=== PATIENT | male | born 1950 | race Hispanic/Latino ===

== ENCOUNTER 2018-01-23 10:24 | Observation (INO) | payer MEDICARE ==
--- NOTE | 2018-01-22 11:09 | Diagnostic Imaging Report ---
PROCEDURE: X-RAY CHEST, TWO VIEWS COMPARISON: None. INDICATIONS: PRE OPERATIVE CHEST X-RAY FOR UROLOGY SURGERY FINDINGS: The lungs are well-inflated. No focal airspace consolidation, pleural effusion, or pneumothorax. Hazy opacity along the right and left heart borders likely reflect prominent epicardial fat. Convexity of the azygos esophageal line likely related to multilevel degenerative disc changes and large marginal osteophytes. Tortuosity and atherosclerotic calcification of the thoracic aorta. No acute osseous abnormality. Healed fracture deformity of the midshaft of the left clavicle. CONCLUSION: No acute cardiopulmonary abnormality. Dictated by: Mega Bradley M.D. on 01/22/2018 at 11:11 Electronically approved by: Mega Bradley M.D. on 01/22/2018 at 11:11
[2018-01-22 11:16] LABS: BASOPHILS # (AUTO) 0.1 (0.0-0.1); BASOPHILS % 0.5 % (0.0-1.0); EOSINOPHILS # (AUTO) 0.5 (0.0-0.4); HEMATOCRIT 40.9 % (38.2-49.6); LYMPHOCYTES # (AUTO) 2.4 (1.0-3.2); LYMPHOCYTES % 24.6 % (18.0-39.1); MEAN CORPUSCULAR HEMOGLOBIN 31.3 pg (28-32); MEAN CORPUSCULAR HGB CONC 31.8 g/dL (31-35); MEAN CORPUSCULAR VOLUME 98.3 fL (81-99); MONOCYTES # (AUTO) 1.6 (0.2-0.8); MONOCYTES % 16.2 % (4.4-11.3); NEUTROPHILS # (AUTO) 5.2 (2.1-6.9); NEUTROPHILS % 53.1 % (38.7-80.0); PLATELET COUNT 172 x10e3/uL (140-360); RED BLOOD COUNT 4.16 x10e6/uL (4.3-5.7); RED CELL DISTRIBUTION WIDTH 15.2 % (11.7-14.4)
[2018-01-22 11:26] LABS: INR 1.01; PROTHROMBIN TIME 12.5 seconds (11.9-14.5)
[2018-01-22 11:27] LABS: PARTIAL THROMBOPLASTIN TIME 25.5 seconds (23.8-35.5)
[2018-01-22 11:35] LABS: ALANINE AMINOTRANSFERASE 18 IU/L (0-55); ALBUMIN 3.3 g/dL (3.5-5.0); ALKALINE PHOSPHATASE 76 IU/L (40-150); ANION GAP 11.1 mmol/L (8-16); BLOOD UREA NITROGEN 20 mg/dL (7-26); BUN/CREATININE RATIO 22 (6-25); CALCIUM 9.2 mg/dL (8.4-10.2); CARBON DIOXIDE 27 mmol/L (22-29); CHLORIDE 109 mmol/L (98-107); EST GLOMERULAR FILTRATION RATE > 60 ML/MIN (60-); GLUCOSE 91 mg/dL (74-118); POTASSIUM 4.1 mmol/L (3.5-5.1); SODIUM 143 mmol/L (136-145)
[2018-01-22 12:46] LABS: EOSINOPHILS % (MANUAL) 3 % (0-7); LYMPHOCYTES % (MANUAL) 20 % (19-48); MONOCYTES % (MANUAL) 18 % (3.4-9.0); NEUTROPHILS % (MANUAL) 52 % (40-74)
[2018-01-22 12:47] LABS: ANISOCYTOSIS SLIGHT; PLATELET ESTIMATE ADEQUATE; PLATELET MORPHOLOGY COMMENT FEW LARGE; RBC MORPHOLOGY COMMENT NORMAL
[~2018-01-23] VITALS: Ht 167.6 cm; Wt 98.2 kg
[~2018-01-23 10:24] MED LIST: NAFTIN45 GM TOP
--- OUTSIDE RECORDS SUMMARY | 2018-01-23 10:26 | XMS REPORT ---
[facility] Address Unknown Phone Unavailable Care Team Providers Care [employer] President Name Role Phone CATRINA SWIFT Unavailable Unavailable Problems This patient has no known problems. Allergies, Adverse Reactions, Alerts This patient has no known allergies or adverse reactions. Medications This patient has no known medications. Results Test Description Test Time Test Comments Text Results Atomic Results Result Comments CHEST 2 VIEWS [place] [address] Patient Name: SANTHOSH GLEASON MR #: [id number] : 1950 Age/Sex: 67/M Req #: [id number] Adm Physician: Ordered by: CATRINA SWIFT MD Report #: [id number] Location: OR Room/Bed: Procedure: [id number] DX/CHEST 2 VIEWS Exam Date: 01/22/18 Exam Time: 1030 REPORT STATUS: Signed PROCEDURE: X-RAY CHEST, TWO VIEWS COMPARISON: None. INDICATIONS: PRE OPERATIVE CHEST X-RAY FOR UROLOGY SURGERY FINDINGS: The lungs are well-inflated. No focal airspace consolidation, pleural effusion, or pneumothorax. Hazy opacity along the right and left heart borders likely reflect prominent epicardial fat. Convexity of the azygos esophageal line likely related to multilevel degenerative disc changes and large marginal osteophytes. Tortuosity and atherosclerotic calcification of the thoracic aorta. No acute osseous abnormality. Healed fracture deformity of the midshaft of the left clavicle. CONCLUSION: No acute cardiopulmonary abnormality. Dictated by: Diane Dominique M.D. on 01/22/2018 at 11:11 Electronically approved by: Diane Dominique M.D. on 01/22/2018 at 11:11 Dictated By : DIANE DOMINIQUE MD 1111 Transcribed By: NATALEE on 01/22/18 1111 COPY TO: CATRINA SWIFT MD
[2018-01-23] MEDS ORDERED: CEFOXITIN SOD 1 GM VIAL ONE (10:53)
--- NOTE | 2018-01-23 13:23 | Operative Report ---
DATE OF PROCEDURE: January 23, 2018 PREOPERATIVE DIAGNOSIS: Elevated prostate-specific antigen of prostate and nodular prostate. POSTOPERATIVE DIAGNOSIS: Elevated prostate-specific antigen and nodular prostate. OPERATION PERFORMED: Ultrasound-directed transrectal prostate biopsy. ANESTHESIA: IV sedation monitored anesthesia care. INDICATIONS: This patient is a 67-year-old male with a long history of chronic prostatitis. He states he saw a physician in [place] for routine exam and was told there was something wrong with the blood test on his prostate, and he was subsequently treated with antibiotics. The patient states he has had previous prostate-specific antigens done that were always normal. He has a family history of prostate cancer that includes his father. When I examined him, the patient had a PSA of 14.12 and had a prostate nodule and his urine did not appear infected at that time. I obtained a PSA on him which came back 14.12. For further details, please refer to the history and physical. The procedure was done in the following fashion: DESCRIPTION OF PROCEDURE: The patient was taken to the operating room and placed under IV sedation monitored anesthesia care. He was then placed in the lateral decubitus position with the right side up. An ultrasound scan of the prostate was performed which suggested about a 20-gram prostate. The seminal vesicles appeared normal. There were numerous internal calcifications. Sextant biopsies of the prostate were performed using the Netcipia spring-loaded biopsy gun and the ultrasound probe. Specimens were taken from the right base lateral, right base medial, right mid lateral, then right mid medial, then right base lateral, then right base medial, then left base lateral, then left base medial, then left mid lateral, then left mid medial, then left apex lateral, then left apex medial. After the 12 specimens were obtained, the prostate gun was removed and the ultrasound probe removed. The patient was returned to a supine position, and an 18-Amharic Dinero catheter was inserted. The patient tolerated the procedure well and left the operating room in good condition. My plan at this time is to monitor the patient overnight with a catheter to gravity drainage. Remove the catheter in the morning for a trial of voiding. Job#: [id number]
[2018-01-23 13:30] VITALS: BP 134/72
[2018-01-23] MEDS: SODIUM CHLORIDE 0.9% 1000ML 1,000 ML IV SCH ×2 (14:36→21:59)
[2018-01-23 14:41] VITALS: BP 134/72
[2018-01-23 14:50] VITALS: BP 134/72
[2018-01-23] MEDS ORDERED: MIDAZOLAM HCL 2 MG/2 ML VIAL ONE (15:06)
[2018-01-23] MEDS ORDERED: FENTANYL CITRATE/PF 100MCG/2 ML INJ ONE (15:06)
[2018-01-23] MEDS ORDERED: PROPOFOL IV EMULSION 10 MG/ML 20 ML VIAL ONE (15:18)
[2018-01-23] MEDS ORDERED: LIDOCAINE HCL 2% LOCAL INJ 5 ML SDV VIAL INJ ONE (15:18)
[2018-01-23] MEDS: DOCUSATE SODIUM 100 MG CAP PO SCH (17:00)
[2018-01-23 17:05] VITALS: BP 120/73
[2018-01-23] MEDS ORDERED: CEFOXITIN 1GM/ DEXTROSE 50ML 50 ML IV SCH (18:00)
[2018-01-23] MEDS: CEFOXITIN SOD 1 GM VIAL IV SCH ×2 (18:28→23:24)
[2018-01-23 20:00] VITALS: BP 116/73
[2018-01-24] VITALS (7 sets, daily range): BP systolic 115–142; BP diastolic 60–78
[2018-01-24] MEDS: HYDROCODONE/APAP 7.5MG-325MG 1 EA TAB PO PRN ×3 (03:18→18:00)
[2018-01-24] MEDS: CEFOXITIN SOD 1 GM VIAL IV SCH ×4 (05:07→23:45)
[2018-01-24] MEDS ORDERED: MORPHINE SULFATE 2 MG/ML SYR IV PRN (07:00)
[2018-01-24] MEDS ORDERED: ONDANSETRON HCL 4 MG ORAL DISINTEGRATING TAB PO PRN (07:00)
[2018-01-24] MEDS: SODIUM CHLORIDE 0.9% 1000ML 1,000 ML IV SCH ×3 (09:07→23:45)
[2018-01-24] MEDS: DOCUSATE SODIUM 100 MG CAP PO SCH ×2 (09:20→17:00)
[2018-01-24] MEDS ORDERED: METHYLPREDNISOLONE SOD SUCC 40 MG/ML VIAL IV ONE (11:00)
[2018-01-24] MEDS: METHYLPREDNISOLONE SOD SUCC 40 MG/ML VIAL IV SCH (11:17)
[2018-01-24] MEDS: ALLOPURINOL 100 MG TAB PO SCH (11:17)
--- NOTE | 2018-01-24 13:03 | Progress Note ---
DATE: January 24, 2018 The patient is now 1 day status post ultrasound-directed transrectal prostate biopsy. The Dinero catheter was removed this morning for a trial of voiding. The patient states he voided without difficulty, and the urine is yellow colored. However, the patient has developed pain and swelling in the right knee and it is very tender. The patient now relates that he has a past history of gout and he is taking indomethacin on and off for several years for gout flare ups. He thinks this may be another gout attack. PHYSICAL EXAMINATION GENERAL: Reveals that the patient is alert and oriented to person, place and time. LUNGS: Clear. HEART: Heart rate is regular. ABDOMEN: Soft. EXTREMITIES: The left leg appears normal except for varicose veins. The right leg has varicose veins. There is extreme swelling and tenderness in the right knee. There is no evidence of tophus at this time. However, with the varicose veins he does have a little bit of swelling in the right lower extremity. In order to make sure that this is not a deep venous thrombophlebitis postoperatively, I am getting a Doppler study on the right leg in order to make sure that he is not having a deep venous thrombophlebitis. I discussed this with Dr. Alexy Daniel over the telephone. If it turns out that the patient is just having a gout attack, Dr. Daniel can send him home on the appropriate medications and antibiotics when he comes in to see the patient. However, if the patient does in fact have a deep venous thrombophlebitis, he will need to be admitted and started on appropriate anticoagulation therapy. Job#: [id number] SUSAN
[2018-01-24] MEDS: COLCHICINE 0.6 MG TAB PO SCH ×2 (15:08→17:00)
[2018-01-24 15:16] LABS: CHOL/HDL RATIO 2.6 (3.9-4.7)
[2018-01-24] MEDS: ENOXAPARIN SOD INJ 40 MG/0.4 ML SYR SC SCH (17:00)
[2018-01-24] MEDS ORDERED: COLCHICINE 0.6 MG TAB PO SCH (17:00)
--- NOTE | 2018-01-24 18:37 | Consultation ---
DATE OF CONSULTATION: MEDICAL CONSULTATION ATTENDING PHYSICIAN: Dr. Park REASON FOR CONSULTATION: Medical management. CHIEF COMPLAINT: Elevated PSA. HISTORY OF PRESENT ILLNESS: This is a 67-year-old man with a history of cigarette use, quitting 30 years ago. He was being treated with Rapaflo for prostate-related problems. He has had chronic prostatitis. Now found to have elevated PSA of 14.12. He came in electively for prostate biopsy. This was uneventful. The patient now developed right knee pain. He does have a history of gout. The pain is severe, about 10 out of 10, with use of the leg. He is admitted for further evaluation and management. PAST MEDICAL HISTORY: Gout; chronic prostatitis; cigarette abuse, quitting 30 years ago; elevated PSA at 14.12; osteoarthritis; varicose veins of the lower extremities. ALLERGIES: PER ELECTRONIC MEDICAL RECORD. FAMILY HISTORY: Mother had liver cancer. Father had lung cancer, and father had prostate cancer. SOCIAL HISTORY: The patient is . He quit cigarettes in 1977. He previously smoked 1 pack per day. No alcohol or illicits. 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 MEDICATIONS: Per electronic medical record. REVIEW OF SYSTEMS: Denies any dizziness, chest pain or shortness of breath. VITAL SIGNS: Have been reviewed. PHYSICAL EXAMINATION GENERAL: A tired-appearing man resting in bed. HEENT: Anicteric. Pupils are responsive to light. No oral lesions. CARDIOVASCULAR: Normal S1 and S2. LUNGS: Moderate breath sounds. ABDOMEN: Soft, nontender, nondistended. : No Dinero in place. EXTREMITIES: He has right knee with exquisite tenderness on palpation. No edema. SKIN: Dry. PSYCHIATRIC: Normal affect. NEUROLOGIC: Alert and oriented times 3, moving all extremities. SKIN: Dry. PSYCHIATRIC: Normal affect. LABS: Reviewed. MEDICATIONS: Reviewed. ASSESSMENT AND PLAN: This is a 67-year-old man. 1. Elevated prostate-specific antigen. He is status post prostate biopsy. Will follow up results. 2. Right knee gout flare. His uric acid level is 7.3. Will continue with IV steroids and allopurinol and also add colchicine. If he can tolerate ambulation tomorrow, he possibly could go home tomorrow with medication and a crutch for walking. 3. Osteoarthritis. P.R.N. pain medication. 4. Physical deconditioning, probably due to gout flare. Will consult physical therapy. He may need a walker. 5. Obesity. BMI is 34. 9. Screen for diabetes and obtain lipid panel. 6. Normocytic anemia, mild. Will follow. 7. Prophylaxis: Use DVT prophylaxis. 8. Disposition: Ultrasound of the right leg is negative for any DVT. Will add Lovenox and Pepcid. RENETTA MAURICIO MD Job#: [id number]
[2018-01-25] VITALS (7 sets, daily range): BP systolic 123–154; BP diastolic 69–74
[2018-01-25] MEDS: CEFOXITIN SOD 1 GM VIAL IV SCH ×3 (05:05→17:30)
[2018-01-25] MEDS: HYDROCODONE/APAP 7.5MG-325MG 1 EA TAB PO PRN (07:10)
[2018-01-25] MEDS: COLCHICINE 0.6 MG TAB PO SCH ×2 (08:57→17:30)
[2018-01-25] MEDS: METHYLPREDNISOLONE SOD SUCC 40 MG/ML VIAL IV SCH (08:57)
[2018-01-25] MEDS: DOCUSATE SODIUM 100 MG CAP PO SCH ×2 (08:57→17:30)
[2018-01-25] MEDS: ALLOPURINOL 100 MG TAB PO SCH (09:00)
[2018-01-25] MEDS ORDERED: PREDNISONE20 MG PO (09:16)
[2018-01-25] MEDS ORDERED: ALLOPURINOL100 MG PO (09:16)
[2018-01-25] MEDS ORDERED: Colchicine PO (09:16)
[2018-01-25] MEDS ORDERED: ULTRAM 50MG50 MG PO (09:22)
[2018-01-25] MEDS ORDERED: KEFLEX500 MG PO (09:22)
[2018-01-25] MEDS ORDERED: COLACE100 M1 PO (09:22)
[2018-01-25] MEDS: SODIUM CHLORIDE 0.9% 1000ML 1,000 ML IV SCH (14:56)
[2018-01-25] MEDS: ENOXAPARIN SOD INJ 40 MG/0.4 ML SYR SC SCH (17:30)
--- NOTE | 2018-03-02 13:30 | Discharge Summary ---
FINAL DISCHARGE DIAGNOSIS: Elevate prostate specific antigen. OPERATIONS PERFORMED: Ultrasound-directed transrectal prostate biopsy. CONSULTING PHYSICIAN: Dr. Alexy Daniel. HISTORY OF PRESENT ILLNESS: This patient is a 67-year-old male with a long history of chronic prostatitis. He was found to have a prostate specific antigen of 14.12 and a prostate nodule on physical examination. HOSPITAL COURSE: The patient came into the hospital as an outpatient day surgery on January 23, 2018 and had ultrasound-directed transrectal prostate biopsy. The patient tolerated the procedure well and left the operating room in good condition but the next day he was complaining about leg pains and it look like he may have been having an exacerbation of gout. A Doppler ultrasound study was obtained. The Doppler ultrasound study confirmed that he did not have a deep venous thrombophlebitis and our concern then was that he be treated for gout following his ultrasound-directed transrectal prostate biopsy. The patient was subsequently discharged after it was confirmed he did not have a deep venous thrombophlebitis and he left the hospital in good condition just having the gout attack on appropriate medication. It should be noted the patient subsequently responded to the medication that Dr. Alexy Daniel prescribed for him regarding the gout and the prostate biopsy came back showing prostate cancer. CATRINA SWIFT MD Job#: [id number] DG
== END 2018-01-25 20:40 | disposition home or self-care (01) ==
LOC: OR 10:24 → IMCU 13:14
PROVIDERS: ADMIT Urology; ATTEND Urology
DX: C61 Malignant neoplasm of prostate (principal); N41.1 Chronic prostatitis; M10.061 Idiopathic gout, right knee; D64.9 Anemia, unspecified; E66.9 Obesity, unspecified; Z68.34 Body mass index [BMI] 34.0-34.9, adult; M19.90 Unspecified osteoarthritis, unspecified site; I83.93 Asymptomatic varicose veins of bilateral lower extremities; K64.4 Residual hemorrhoidal skin tags; R21 Rash and other nonspecific skin eruption; Z01.810 Encounter for preprocedural cardiovascular examination; Z01.812 Encounter for preprocedural laboratory examination; Z01.818 Encounter for other preprocedural examination; Z80.42 Family history of malignant neoplasm of prostate; Z87.891 Personal history of nicotine dependence; Z80.1 Family history of malignant neoplasm of trachea, bronchus and lung; Z80.8 Family history of malignant neoplasm of other organs or systems
CPT/HCPCS: 36415 ×2; 55700; 71046; 76872; 76942; 80053; 80061; 83036; 84550; 85025; 85610; 85730; 88305; 93005; 93971; 97116; 97139; 97163; 97530; G0378 ×3; G8978; G8979; J0694 ×3; J1650 ×2; J2001; J2250; J2270; J2920 ×2; J7030 ×3

== ENCOUNTER 2022-11-07 07:12 | Observation (INO) | payer MEDICARE ==
[2022-11-06 08:48] LABS: BASOPHILS % 0.3 % (0.0-1.0); EOSINOPHILS # (AUTO) 0.4 (0.0-0.4); EOSINOPHILS % 3.7 % (0.0-6.0); HEMATOCRIT 42.3 % (38.2-49.6); HEMOGLOBIN 13.7 g/dL (14.0-18.0); LYMPHOCYTES # (AUTO) 2.6 (1.0-3.2); LYMPHOCYTES % 27.9 % (18.0-39.1); MEAN CORPUSCULAR HEMOGLOBIN 31.4 pg (28-32); MEAN CORPUSCULAR HGB CONC 32.4 g/dL (31-35); MEAN CORPUSCULAR VOLUME 96.8 fL (81-99); MONOCYTES # (AUTO) 2.1 (0.2-0.8); MONOCYTES % 21.9 % (4.4-11.3); NEUTROPHILS # (AUTO) 4.3 (2.1-6.9); NEUTROPHILS % 45.5 % (38.7-80.0); PLATELET COUNT 245 x10e3/uL (140-360); RED BLOOD COUNT 4.37 x10e6/uL (4.3-5.7)
[2022-11-06 09:06] LABS: ANION GAP 13.7 mmol/L (8-16); BLOOD UREA NITROGEN 13 mg/dL (7-26); BUN/CREATININE RATIO 13 (6-25); CARBON DIOXIDE 22 mmol/L (22-29); CHLORIDE 108 mmol/L (98-107); CREATININE, SERUM 0.99 mg/dL (0.72-1.25); GLUCOSE 92 mg/dL (74-118); POTASSIUM 3.7 mmol/L (3.5-5.1); SODIUM 140 mmol/L (136-145)
[2022-11-06 09:15] LABS: INR 0.96; PARTIAL THROMBOPLASTIN TIME 29.6 seconds (23.8-35.5)
[2022-11-06 10:54] LABS: EOSINOPHILS % (MANUAL) 2 % (0-7); LYMPHOCYTES % (MANUAL) 23 % (19-48); MONOCYTES % (MANUAL) 17 % (3.4-9.0); MYELOCYTES % (MANUAL) 1 % (0-0); NEUTROPHILS % (MANUAL) 50 % (40-74)
[2022-11-06 10:55] LABS: PLATELET ESTIMATE ADEQUATE; PLATELET MORPHOLOGY COMMENT NORMAL; RBC MORPHOLOGY COMMENT NORMAL
[~2022-11-07] VITALS: Ht 167.6 cm; Wt 102.1 kg
[~2022-11-07 07:12] MED LIST changes: +ALLOPURINOL100 MG PO; +COLACE100 M1 PO; +Colchicine PO; +KEFLEX500 MG PO; +LIDOCAINE 1% W/EPINEPHRINE 20 ML VIAL ONE; +PREDNISONE20 MG PO; +THROMBIN FOR SOLN 5,000 UNIT VIAL ONE; +TYLENOL EXTRA500 MG PO; +ULTRAM 50MG50 MG PO; +Vancomycin IV 1 GM VIAL ONE
[2022-11-07] MEDS ORDERED: SUGAMMADEX SODIUM 200 MG/2 ML VIAL IV ONE (07:23)
[2022-11-07] MEDS ORDERED: CEFAZOLIN SODIUM 2 GM ONE (07:56)
[2022-11-07] MEDS ORDERED: PROPOFOL IV EMULSION 10 MG/ML 20 ML VIAL ONE (10:35)
[2022-11-07] MEDS ORDERED: SEVOFLURANE INHAL SOLN 250 ML PEN BTL ONE (10:35)
[2022-11-07] MEDS ORDERED: LIDOCAINE HCL 2% LOCAL INJ 5 ML SDV VIAL INJ ONE (10:35)
[2022-11-07] MEDS ORDERED: ONDANSETRON HCL INJ 2MG/ML 2ML 2 MG/ML VIAL ONE (10:35)
[2022-11-07] MEDS ORDERED: DEXAMETHASONE SOD PHOS INJ 4 MG/ML SDV ONE (10:35)
[2022-11-07] MEDS ORDERED: POVIDONE IODINE 0.05% 0.05 % ML PO ONE (10:35)
[2022-11-07] MEDS ORDERED: EPHEDRINE SULFATE INJ 50 MG/ML VIAL ONE (10:35)
[2022-11-07] MEDS ORDERED: MAGNESIUM/ALUMINUM/SIMETHICONE 30 ML UDC PO PRN (10:45)
[2022-11-07] MEDS ORDERED: ACETAMINOPHEN 325 MG TAB PO PRN (10:45)
[2022-11-07] MEDS ORDERED: PROMETHAZINE HCL (IM) 25 MG/ML VIAL IM PRN (10:45)
[2022-11-07] MEDS ORDERED: MORPHINE SULFATE 5 MG/ML VIAL IM PRN (10:45)
[2022-11-07] MEDS ORDERED: HYDROMORPHONE 2MG/ML 2 MG/ML ML IV PRN (10:45)
[2022-11-07] MEDS ORDERED: ONDANSETRON HCL INJ 2MG/ML 2ML 2 MG/ML VIAL IV PRN (10:45)
[2022-11-07] MEDS ORDERED: CARISOPRODOL 350 MG TAB PO PRN (10:45)
[2022-11-07] MEDS ORDERED: ZOLPIDEM TARTRATE 5 MG TAB PO PRN (10:45)
[2022-11-07] MEDS ORDERED: OXYCODONE/ACETAMINOPHEN 5-325 1 EACH TABLET PO PRN (10:45)
[2022-11-07] MEDS ORDERED: HYDROCODON-ACE1 EA12 PO (10:46)
[2022-11-07] MEDS ORDERED: FENTANYL CITRATE/PF 100MCG/2 ML INJ ONE ×2 (12:18→13:19)
[2022-11-07 14:30] VITALS: BP 134/88
[2022-11-07] MEDS: LACTATED RINGER'S 1,000 ML IV SCH ×3 (15:14→23:31)
[2022-11-07 15:32] VITALS: BP 134/80
[2022-11-07 15:45] VITALS: BP 134/80
[2022-11-07 16:12] VITALS: BP 134/81
[2022-11-07 20:00] VITALS: BP 140/74
[2022-11-08 00:35] VITALS: BP 145/81
[2022-11-08 04:25] VITALS: BP 139/85
[2022-11-08 05:14] VITALS: BP 145/81
[2022-11-08 08:00] VITALS: BP 134/75
[2022-11-08] MEDS ORDERED: ONDANSETRON HCL 4 MG ORAL DISINTEGRATING TAB PO PRN (08:15)
== END 2022-11-08 08:39 | disposition home or self-care (01) ==
LOC: OR 07:12 → PACU V 10:44 → MED/SURG2 14:11
PROVIDERS: ADMIT Neurological Surgery; ATTEND Neurological Surgery
DX: M50.021 Cervical disc disorder at C4-C5 level with myelopathy (principal); M06.9 Rheumatoid arthritis, unspecified; Z71.82 Exercise counseling; Z71.3 Dietary counseling and surveillance; Z01.810 Encounter for preprocedural cardiovascular examination; Z01.812 Encounter for preprocedural laboratory examination; Z01.818 Encounter for other preprocedural examination; Z20.822 Contact with and (suspected) exposure to COVID-19; Z68.31 Body mass index [BMI] 31.0-31.9, adult; Z96.653 Presence of artificial knee joint, bilateral; Z87.891 Personal history of nicotine dependence
CPT/HCPCS: 0223U; 20931; 22551; 22845; 36415; 71046; 72040; 80048; 85025; 85610; 85730; 86850; 86900; 88304; 88311; 93005; C1713 ×3; G0378 ×2; J0690 ×2; J1100; J2001; J2405; J2704; J3010 ×2; J3370; J7121; 76000

== ENCOUNTER → 2022-12-10 | Outpatient (CLI) | payer MEDICARE ==
[~2022-12-10] MED LIST changes: +HYDROCODON-ACE1 EA12 PO; -LIDOCAINE 1% W/EPINEPHRINE 20 ML VIAL ONE; -THROMBIN FOR SOLN 5,000 UNIT VIAL ONE; -Vancomycin IV 1 GM VIAL ONE
== END ==
LOC: RAD 15:28
PROVIDERS: ATTEND Neurological Surgery
DX: M50.20 Other cervical disc displacement, unspecified cervical region (principal); M43.22 Fusion of spine, cervical region
CPT/HCPCS: 72050